=== PATIENT | female | born 1965 | race Asian ===

== ENCOUNTER → 2016-10-03 | Outpatient (CLI) | payer BC ==
[~2016-10-03] MED LIST: ESTA1TAB PO
--- NOTE | 2016-10-03 13:25 | MAMMOGRAPHY REPORT ---
BILATERAL DIGITAL DIAGNOSTIC MAMMOGRAM TOMOSYNTHESIS WITH CAD AND TARGETED RIGHT ULTRASOUND: 7 CLINICAL HISTORY: History of a benign surgical excision of the right breast in 2012. The patient re ports a palpable lump underneath her scar from a prior excisional biopsy. TECHNIQUE: Breast tomosynthesis in addition to standard 2D mammography was performed. Current study was also evaluated with a Computer Aided Detection (CAD) system. Bilateral CC and MLO 2-D and bart synthesis images were obtained. COMPARISON: Comparison is made to exams dated: 01/04/2014 mammogram, 08/06/2012 mammogram, 07/21/2012 m ammogram, and 03/07/2011 mammogram - [facility]. BREAST COMPOSITION: The tissue of both breasts is extremely dense, which lowers the sensitivity of mammography. FINDINGS: A triangle marker bar the site of the palpable lump in the right upper inner quadrant. No suspicious masses or other suspicious mammographic abnormalities are noted in this region. The remainder of both breasts are stable mammographically compared to prior exams, without suspicious ma sses, calcifications, or areas of architectural distortion noted. Targeted ultrasound was performed of the area of the palpable lump pointed out by the patient, in th e right breast at approximately 2:00, 2 cm from the nipple, inferior to the surgical scar. Sonograp hically normal tissue is seen in this region, without evidence of a mass or other suspicious sonogra phic abnormality. IMPRESSION: ACR BI-RADS CATEGORY 1: NEGATIVE, TARGETED ULTRASOUND ACR BI-RADS CATEGORY 1: NEGATIVE No suspicious mammographic or sonographic abnormality at the site of the palpable lump in the right breast at 2:00, inferior to the patient's surgical scar. There is no mammographic or targeted sonog raphic evidence of malignancy. Recommend clinical follow-up; any decision to biopsy should be based on clinical grounds. Also recommend routine bilateral screening mammograms in one year. The patient has been verbally notified of the results. Approximately 10% of breast cancers are not detected with mammography. A negative mammographic repor t should not delay biopsy if a clinically suggestive mass is present. Uma Gavin M.D. ah/:10/03/2016 12:06:25 Mixer Driver: Bel BARAHONA(Arielle)(Sarina), [facility] letter sent: Normal 1/2 BI-RADS Code: ACR BI-RADS Category 1: Negative Ultrasound BI-RADS: ACR BI-RADS Category 1: Negative
== END | disposition home or self-care (01) ==
LOC: C.MAMM 11:20
PROVIDERS: ATTEND Obstetrics & Gynecology
DX: N63 Unspecified lump in breast (principal)

== ENCOUNTER → 2016-11-08 | Outpatient (CLI) | payer BC | END | disposition home or self-care (01) | LOC: C.PATH 15:51 | PROVIDERS: ATTEND Obstetrics & Gynecology | DX: N84.1 Polyp of cervix uteri (principal) ==